=== PATIENT | female | born 1960 | race African-American/Black ===

== ENCOUNTER 2025-01-22 22:26 | Emergency (ER) | payer OTHER, SELFPAY ==
--- NOTE | ~2025-01-22 | CT_ITS ---
CT HEAD NON-CONTRAST Clinical History: face paresthesia Comparison: None Technique: Unenhanced axial images skull base to vertex Coronal, sagittal reformats CT images acquired with automatic exposure control for dose reduction DLP: 681 mGy-cm Findings: Sulci, ventricles: Unremarkable. No intracerebral hemorrhage. No evidence acute territorial infarct. No mass effect, midline shift. Bony calvarium intact. Visualized paranasal sinuses: Clear. Mastoid air cells: Clear. IMPRESSION: 1. No acute intracranial findings. Reviewed, dictated and finalized at location [facility]
--- OUTSIDE RECORDS SUMMARY | 2025-01-22 22:29 | XMS_ITS | Clinical Summary ---
Author Organization [facility] [employer] Address [address] [place] [address] Care Team Providers Care Weatherization Technician Name Role Phone Lopez Cox MD Primary Care Provider Source Comments [facility] [employer],non-owned Affiliates and Associated Physician Practices is amultiple site organization consisting of ambulatory clinics and hospital sitesin [place], [place], [place] and [place]. This disclosure is being madepursuant to the Care Everywhere program and may not contain all information available regarding this patient. Last updated 17.[facility] [employer] Allergies No known active allergies Medications * This document contains information received from the source organization and may not represent a complete record from that organization. * Be aware that medications may not be up to date on this document. Alwaysverify current medications with the patient. aspirin EC (ECOTRIN) 81 MG tablet aspirin 81 mg tablet,delay ed release TAKE 1 TABLET BY MOUTH EVERY DAY Active amLODIPine (Norvasc) 10 MG tablet Take 1 (one) tablet by mouth once daily Active Blood Glucose Monitoring Suppl (ONE TOUCH ULTRA 2) w/Device KIT as directed 10/09/19 22 Active rosuvastatin (Crestor) 10 MG tablet Take 1 (one) tablet by mouth 06/06/19 23 Active glimepiride (Amaryl) 2 MG tablet Take 1 (one) tablet by mouth 2 times daily with morning and evening meal 06/16/19 23 Active losartan - hydroCHLOROthiazide (Hyzaar) 50-12.5 MG tablet losartan 50 mg-hydrochlo rothiazide 12.5 mg tablet TAKE 2 TABLETS BY MOUTH DAILY Active Rybelsus 7 MG tablet Take 1 (one) tablet by mouth once daily 12/10/19 24 Active metFORMIN ER 24hr (Glucophage XR) 500 MG tabletIndications:Type 2 diabetes mellitus without complication, with long-term current use of insulin (HCC) Take 4 (four) tablets by mouth daily with dinner 120 tablet 11 05/10/19 25 Active dexAMETHasone (Decadron) 1 MG tabletIndications:Adren al incidentaloma (HCC) Take 1 (one) tablet by mouth once daily 1 tablet 08/11/19 25 Active Active Problems Problem Noted Date Diagnosed Date Adrenal incidentaloma 08/12/2022 Assessment & Plan (08/12/2022 3:51 PM CDT): 61 yo F with adrenal incidentaloma. No symptoms. Will get testing for excess adrenal hormones: 24-hour urine fractioned metanephrines and cathecolamines 24-h urinary free cortisol Aldosterone/ renin ratio Creatinine. We will follow up in 3 months after labs done Benign essential hypertension 03/26/2021 Diabetes mellitus 03/26/2021 Impaired fasting glucose 03/26/2021 Osteoarthrosis 03/26/2021 Tobacco user 03/26/2021 History of excision of mass 03/26/2021 COVID-19 virus infection 02/03/2021 Hyperplastic polyp of large intestine 01/18/2020 Nicotine dependence 05/27/2018 History of total hysterectomy 01/26/2018 Influenza vaccination declined 01/25/2018 0 08/12/2022 History of hysterectomy 01/25/2018 08/13/19 23 Type 2 diabetes mellitus without complication Overview (11/08/2024): IMO 11/08/2024 Forearm mass, right Social History Tobacco Use Types Packs/Day Years Used Date Smoking Tobacco: Former Cigarettes 0 Q uit: 02/03/2021 Smokeless Tobacco: Never Tobacco Cessation:Counseling Given: Not Answered Comments:pack would last about a week Alcohol Use Standard Drinks/Week Comments Yes 2 (1 standard drink = 0.6 oz pur e alcohol) socially Comments No Sex and Gender Information Value Date Recorded Sex Assigned at Not on file Legal Sex Female 6:28 AM FILM WAXER Gender Identity Not on file Sexual Orientation Not on file Last Filed Vital Signs Vital Sign Reading Time Taken Comments Blood Pressure 121/69 08/03/2024 9:41 AM CDT Pulse 85 08/03/2024 9:41 AM CDT Temperature 36.3 C (97.4 F) 04/21/2023 2:22 PM CDT Respiratory Rate 12 04/21/2023 2:22 PM CDT Oxygen Saturation 100% 08/03/2024 9:41 AM CDT Inhaled Oxygen Concentration - - Weight 68.8 kg (151 lb 9.6 oz) 08/03/2024 9:41 A M CDT Height 165.1 cm (5' 5) 08/03/2024 9:41 AM CDT Body Mass Index 25.23 08/03/2024 9:41 AM CDT Plan of Treatment Upcoming Encounters Date Type Department Care Team (Latest Contact Info) Description 03/02/2025 8:45 AM FILM WAXER Hospital Encounter [facility] [address] [place] [id number] Gabe Johnson MD [address] [place] [phone] Surgery General 03/02/2025 8:45 AM FILM WAXER - 03/02/2025 9:30 AM FILM [facility]ER Surgery [facility] [address] [place] [phone] Gabe Johnson MD [address] [place] [phone] COLONOSCOPY SCREEN w/ Agbim Scheduled Procedures Name Priority Associated Diagnoses Date/Ti me COLONOSCOPY SCREEN Hyperplastic colonic polyp, unspecified part of colon 03/02/2025 8:45 AM FILM WAXER Health Maintenance Due Date Last Done Comments COLOGUARD (AGES 45-75) - COLON CA SCREENING 1961 COLON MONITORING 1961 COLONOSCOPY - COLON CA SCREENING 1961 CT COLONOGRAPHY - COLON CA SCREENING 1961 Colorectal Cancer Screening 1961 FIT - COLON CA SCREENING 1961 FLEX SIG - COLON CA SCREENING 1961 MAMMOGRAM 1961 HIV SCREENING 1976 HEPATITIS C SCREENING 08/15/1979 DTAP/TDAP/TD VACCINES (1 - Tdap) 1980 PNEUMOCOCCAL VACCINE 50+ (1 of 2 - PCV) 1980 ZOSTER VACCINE (1 of 2) 08/20/2011 DIABETES RETINOPATHY SCREENING 03/26/2021 DIABETES-FOOT EXAM WITH MONOFILAMENT 03/26/2021 DEPRESSION SCREENING 02/09/2024 DIABETES - URINE PROTEIN SCREENING 02/09/2024 COVID-19 VACCINE ( season) 2024 04/18/2020, 03/21/2020 INFLUENZA VACCINE (#1) 2024 11/11/2013, 2012 DIABETES-HGB A1C 01/11/2025 07/12/2024, 05/2023, 04/21/2023, Additional history exists DIABETES-SERUM CREATININE 01/11/20252023, 01/12/2024, 01/13/2023, Additional history exists Respiratory Syncytial Virus (RSV) Vaccine Pt: or over 60 yrs (1 - 1-dose 75+ series) 2036 HEPATITIS B VACCINE Aged Out No longe r eligible based on patient's age to complete this topic HIB VACCINE Aged Out No longer eligi ble based on patient's age to complete this topic HPV VACCINE Aged Out No longer eligi ble based on patient's age to complete this topic MENINGOCOCCAL (Group B) VACCINE SHARED DECISION-MAKING Aged Out No longer eligible based on patient's age to complete this topic MENINGOCOCCAL GROUPS A/C/Y/W VACCINE Aged Out No longer eligible based on patient's age to complete this topic Goals Goal Patient Goal Type Associated Problems Recent Progress Patient-Stated? Author Medication Management General No Jocelyn Babb, horologist Procedure Name Priority Date/Time Associated Diagnosis Comments HEMOGLOBIN A1C - POINT OF CARE (AMB) [facility] Routine 07/12/2024 1:35 PM CDT Type 2 diabetes mellitus without complication, with long-term current use of insulin (HCC) BASIC METABOLIC PANEL (CALCIUM TOTAL) Routine 01/12/2024 12:05 PM FILM WAXER Adrenal incidentaloma from Last 3 Months or Most Recently Relevant to Health Maintenance Results * HEMOGLOBIN A1C - POINT OF CARE (AMB) [facility] (07/12/2024 1:35 PM CDT) Pathologist [facility] Hemoglobin A1c POCT 5.8 % [address] BLOOD SPECIMEN / Unknown 07/12/2024 1:35 PM CDT Jad Silvestre MD LAB - POINT OF CARE ORDERABLES Final Result [address] [place] [address], [place] [address], [facility] [phone] * (ABNORMAL) BASIC METABOLIC PANEL (CALCIUM TOTAL) (01/12/2024 12:05 PM FILM WAXER) [facility] BUN 11 7 - 26 mg/dL 01/12/2024 1:16 PM [facility] Creatinine 0.75 0.56 - 0.96 mg/dL 01/12/2024 1:16 PM [facility] Sodium 141 136 - 145 mmol/L 01/12/2024 1:16 PM [facility] Potassium 2.9(L) 3.5 - 4.5 mmol/L 01/12/2024 1:16 PM [facility] Chloride 103 98 - 107 mmol/L 01/12/2024 1:16 PM [facility] CO2 26 22 - 29 mmol/L 01/12/2024 1:16 PM [facility] Glucose 141(H) 70 - 99 mg/dL 01/12/2024 1:16 PM [facility] Calcium 9.7 8.4 - 10.2 mg/dL 01/12/2024 1:16 PM [facility] Anion Gap 12 6 - 16 01/12/2024 1:16 PM [facility] BUN/Creatinine Ratio 15 7 - 23 01/12/2024 1:16 PM [facility] Osmolality Calculated 294 275 - 295 mOsm/kg 01/12/2024 1:16 PM [facility] eGFR by CKD-EPI 90 >=90 mL/min/1.7 3 m2 01/12/2024 1:16 PM [facility] Blood BLOOD SPECIMEN / Unknown Lab Venipuncture / Unknown 01/12/2024 12:05 PM FILM [facility]ER 01/12/2024 12:38 PM FILM [facility]ER Andrés Angeles MD LAB - CHEMISTRY ORDERABLES Fi nal Result [facility] [address] [place] [phone], [facility] [phone] from Last 3 Months or Most Recently Relevant to Health Maintenance Insurance [facility] Care Teams Weatherization Technician Relationship Specialty Start Date End Date Lopez Cox MD [address] [place], [place] [phone] PCP - General 12/09/20
--- OUTSIDE RECORDS SUMMARY | 2025-01-22 22:29 | XMS_ITS | Continuity of Care Document ---
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 Plan of Treatment Reminders Order Date Submit Date Provider Last Modified By Organization Details Last Modified Time Details Appointments ANY 15 2025 11:30A M Lopez Cox MD Not available Not available Not available Lab CBC 2024 026 [facility], [address], [address], [place], [address], 11/08/2024 12:57:54 CMP, serum or plasm a 2024 026 [facility], [address] [facility] [address], [address], [place], [address], 11/08/2024 12:57:53 HbA1c (hemo globi n A1c), blood 2024 026 [facility], [address] [facility] [address], [address], [place], [address], 11/08/2024 12:56:28 lipid panel , serum 2024 026 [facility], [address], [place], [address], 11/08/2024 12:56:28 album in/cr eatin ine, mass ratio , urine 2024 026 kylah [facility], [address], [address], [place], [address], 11/08/2024 12:57:03 Referral gastr mu leonardo ist refer ral 2024 TRACY [facility], [address] [place], [address], 12/12/2024 04:09:55 diabe tic ophkarlos almol ogy refer ral 2024 TRACY [facility], [address] , [place], [address], 01/12/2025 07:25:27 hand surge on refer ral 2024 TRACY Ernandez MD, [address] [facility] , [address], [address], 12/12/2024 04:09:55 Procedures None recor ded. Surgeries None recor ded. Imaging MAMMO , evelia crespo, bilat eral 2024 [facility] ([facility]), [address], [place], [address], 12/07/2024 10:20:40 Medication Orders None recor ded. Patient TargetsNo targets recorded. 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 Thumb. Extensor injury R. 5th digit Referring Physician: Lopez Cox, Internal Medicine, Encounter Date: 11/08/2024 Results Created Date Observation Date Name Description Value Unit Range Abnormal Flag Note LastModifiedBy Organization Detail LastModifiedTime 11/07/1911/07/2024 LIPID PANEL cholesterol, total 115 mg/dL 100-19 9 Not Available [facility] ([facility]) [address] [place], [address], 11/07/2024 08:33:14 11/07/1911/07/2024 LIPID PANEL triglyceride s 100 mg/dL 0-149 Not Available [facility] ([facility]) [address] [place], [address], 11/07/2024 08:33:14 11/07/1911/07/2024 LIPID PANEL HDL cholesterol 43 mg/dL >39 Not Available [facility] ([facility]) [address] [place], [address], 11/07/2024 08:33:14 11/07/1911/07/2024 LIPID PANEL VLDL cholesterol maty 19 mg/dL 5-40 Not Available [facility] ([facility]) [address] [place], [address], 11/07/2024 08:33:14 11/07/1911/07/2024 LIPID PANEL LDL chol calc ([facility]) 53 mg/dL 0-99 Not Available [facility] ([facility]) [address] [place], [address], 11/07/2024 08:33:14 11/07/19 25 11/07/2024 HEMOG LOBIN A1C hemoglobin A1C 6.3 % 4.8-5. 6 above high normal Predi abete s: 5.7 - 6.4 Diabe cameron: >6.4 Glyce anamika contr ol for adult s with diabe cameron: <7.0 Not Available [facility] ([facility]) [address], [place], [address], 11/07/2024 08:33:15 10/12/19 25 10/11/2024 MAMMO , scree cherie, bilat eral No observ ation record ed. [facility] [address] [place], [address], 11/08/2024 12:31:58 Result Notes None recorded. Problems Name Problem SNOMED Code Status Onset Date Resolution Date Notes Provider Name and Address Organization Details Recorded Time Neck sprain 391846266 Active oLpez Cox MD Attn: Accounting ,[address] [facility], [place], [address] , [facility] 4 10:29:27 Low back pain 193915228 Active Lopez Cox MD Attn: Accounting ,[address] [facility], [place], [address] , [facility] 4 10:29:27 Impaired fasting glycemia 970361892 Active Not Available [facility] 3 08:41:14 Osteoarthriti s 988772170 Active Not Available [facility] 3 08:41:14 Benign essential hypertension 9406235 Active Not Available [facility] 3 08:41:14 Tobacco user 439438049 Active Not Available [facility] 3 08:41:14 Blood in urine 10982644 Active Not Available [facility] 3 08:41:14 Neck pain 70088018 Active Not Available [facility] 3 08:41:15 Diabetes mellitus 70451394 Active Lopez Cox MD Attn: Accounting ,[address] [facility], [place], [address] , [facility] 5 12:32:47 Benign hypertension 06850686 Active Not Available [facility] 3 08:41:14 Type 2 diabetes mellitus without complication 593837821 Active 2017 Not Available [facility] 3 08:41:14 History of hysterectomy 821200739 Active 2017 Not Available [facility] 3 08:41:14 Influenza vaccination declined 720596863 Active 2017 Not Available [facility] 3 08:41:14 Nicotine dependence 98619110 Active 2018 Not Available [facility] 3 08:41:14 History of total hysterectomy 376905201 Active 2019 Not Available [facility] 3 08:41:14 Hyperplastic polyp of large intestine 748379824 Active 2019 Not Available [facility] 3 08:41:15 Pneumococcal vaccination declined 120433842 Active 2020 Not Available [facility] 3 08:41:14 Bacterial vaginosis 964130052 Active 2020 Not Available [facility] 3 08:41:14 Vascular calcification , radiographic finding 710166272 Active 2022 Not Available [facility] 3 08:41:14 Lesion of liver 479756355 Active 2024 Lopez Cox MD Attn: Accounting ,[address] [facility], [place], [address] , [facility] [place] 5 12:15:41 Notes:Some problems listed i n Documents: #[id number], #[id number] could not be added to this patient's chart. Please review these documents and add these problems to the patient's chart manually as needed. Problem Notes None recorded. Procedures Surgical History Date Name Laterality Status Provider Name and Address Organization Details Recorded Time 04/05/19 25 Diabetic Foot Exam completed Lopez Cox MD Attn: Accounting,[address] [facility], [place], [address], [place] [facility] 04/05/2024 12:14:55 01/14/20 23 Diabetic Foot Exam completed Lopez Cox MD Attn: Accounting,[address] [facility], [place], [address], [place] [facility] 01/13/2023 18:40:52 03/20/19 21 Date of Last Mammogram completed Nakita Zuniga [place] [facility] 07/04/2020 14:11:27 02/21/19 20 Total hysterectomy completed CARLOS ARORA Attn: Accounting,[address] [facility], [place], [address], [place] [facility] 10/28/2022 11:56:36 05/29/19 15 colonoscopy completed Lopez Cox MD Attn: Accounting,[address] [facility], [place], [address], [place] [facility] 02/21/2019 20:31:38 Imaging Results None recorded. Procedure Notes None recorded. Medical Equipment None Reported. Allergies Allergen ID Allergen Name Allergen Category Reaction Reaction Severity Criticality Documentation Date Start Date Code Code System Note Provider Name and Address Organization Details Recorded Time 17570808 No known allergy (situatio n) Not available Not available Not available Not available 10/06/2023 09126 6003 SNOMED Lopez Cox MD Attn: Lavinia mar,[address] [facility], [place], [address], [place] [facility] 10:29:16 No known drug allergies Medications Name Sig Start Date Stop Date Status Note LastModified by Organization Details LastModified Time Prescript ion - New 01/14 completed Not Available Not Available Not Available celecoxib 200 mg capsule TAKE 1 CAPSULE BY MOUTH EVERY DAY 01/13 completed Not Available Not Available Not Available cyclobenz aprine 10 mg tablet TAKE 1 TABLET BY MOUTH EVERY 8 HOURS NEEDED 01/13 completed Not Available Not Available Not Available methocarb patricia 500 mg tablet TAKE 1-2 TABLETS BY MOUTH EVERY 6-8 HOURS NEEDED 01/13 completed Not Available Not Available Not Available metformin 500 mg tablet TAKE 1 TABLET BY MOUTH TWICE DAILY 07/11 completed Not Available Not Available Not Available azithromy nadia 250 mg tablet 09/24 completed Not Available Not Available Not Available ibuprofen 800 mg tablet TAKE 1 TABLET BY MOUTH EVERY 8 HOURS NEEDED active Not Available Not Available No t Available fluconazo le 150 mg tablet TAKE 1 TABLET BY MOUTH EVERY DAY FOR 1 DAY NEEDED 06/15 completed Not Available Not Available Not Available lovastati n 40 mg tablet TAKE 1 TABLET BY MOUTH EVERY DAY 06/15 completed Not Available Not Available Not Available Tylenol Arthritis Pain 650 mg tablet,ex tended release Take 2 tablets every 8 hours by oral route as directed for 10 days. 07/11 completed Not Available Not Available Not Available metronida zole 500 mg tablet TAKE 1 TABLET BY MOUTH TWICE DAILY FOR 7 DAYS DIRECTED 09/10 completed Not Available Not Available Not Available acetamino phen 300 mg-codein e 30 mg tablet TAKE 1 TABLET BY MOUTH FOUR TIMES DAILY NEEDED FOR PAIN 05/14 completed Not Available Not Available Not Available amlodipin e 5 mg tablet Take 1 tablet every day by oral route for 30 days. active Not Available Not Available No t Available acyclovir 400 mg tablet 09/24 completed Not Available Not Available Not Available sulfameth oxazole 800 mg-trimet hoprim 160 mg tablet TAKE 1 TABLET BY MOUTH TWICE DAILY WITH FOOD 02/05 completed Not Available Not Available Not Available aspirin 81 mg tablet,de layed release TAKE 1 TABLET BY MOUTH ONCE DAILY active Not Available Not Available No t Available glimepiri de 2 mg tablet TAKE 1 TABLET BY MOUTH TWICE DAILY WITH MEALS 2024 active Not Available Not Available Not Avai lable glimepiri de 1 mg tablet TAKE 1 TABLET BY MOUTH EVERY DAY WITH A MEAL. 02/05 completed Not Available Not Available Not Available losartan 100 mg-hydroc hlorothia zide 25 mg tablet one po daily 11/08 completed Not Available Not Available Not Available amoxicill in 875 mg tablet 05/11 completed Not Available Not Available Not Available OneTouch Ultra Test strips USE TO TEST ONCE DAILY active Not Available Not Available No t Available dexametha sone 1 mg tablet TAKE 1 TABLET BY MOUTH DAILY active Not Available Not Available No t Available amlodipin e 10 mg tablet TAKE 1 TABLET BY MOUTH EVERY DAY active Not Available Not Available No t Available metformin 1,000 mg tablet TAKE 1 TABLET BY MOUTH TWICE DAILY DIRECTED 07/06 completed Not Available Not Available Not Available losartan 50 mg-hydroc hlorothia zide 12.5 mg tablet TAKE 2 TABLETS BY MOUTH DAILY active Not Available Not Available No t Available metformin ER 500 mg tablet,ex tended release 24 hr TAKE 4 TABLETS BY MOUTH DAILY WITH DINNER active Not Available Not Available No t Available naproxen 500 mg tablet 08/30 completed Not Available Not Available Not Available amoxicill in 875 mg-potass ium clavulana te 125 mg tablet 09/24 completed Not Available Not Available Not Available metaxalon e 800 mg tablet TAKE 1 TABLET BY MOUTH THREE TIMES DAILY NEEDED 07/29 completed Not Available Not Available Not Available cyclobenz aprine 5 mg tablet TAKE 1 TABLET BY MOUTH THREE TIMES DAILY FOR 14 DAYS NEEDED 01/14 completed Not Available Not Available Not Available moxifloxa nadia 0.5 % eye drops INSTILL 1 DROP INTO LEFT EYE THREE TIMES DAILY FOR 7 DAYS 03/10 completed Not Available Not Available Not Available rosuvasta tin 10 mg tablet TAKE 1 TABLET BY MOUTH EVERY DAY AT BEDTIME active Not Available Not Available No t Available nitrofura ntoin monohydra te/macroc rystals 100 mg capsule 05/04 completed Not Available Not Available Not Available Tylenol 08/06 completed Not Available Not Available Not Available Victoza 2-Martin 0.6 mg/0.1 mL (18 mg/3 mL) subcutane ous pen injector Inject 0.6 mg every day by subcutan eous route as directed for 30 days, for Diabetes . 07/06 completed Unavaila ble Not Available Not Available Not Available potassium chloride ER 20 mEq tablet,ex tended release TAKE 2 TABLETS BY MOUTH EVERY DAY FOR 3 DAYS DIRECTED 05/07 completed Not Available Not Available Not Available Jardiance 25 mg tablet TAKE 1 TABLET BY MOUTH EVERY DAY DIRECTED active D/C on 3, Vag. candidia sis Not Available Not Available Not Available Trulicity 0.75 mg/0.5 mL subcutane ous pen injector Inject 0.75 mg every week by subcutan eous route as directed for 28 days. 05/25 completed Not Available Not Available Not Available TRUEplus Pen Needle 31 gauge x 3/16 USE DIRECTED TO inject victoza active Not Available Not Available No t Available Ozempic 0.25 mg or 0.5 mg (2 mg/1.5 mL) subcutane ous pen injector INJECT 0.25MG UNDER THE SKIN ONCE WEEKLY 06/17 completed Complete your current supply of weekly Ozempic, then start Victoza in 1 week Not Available Not Available Not Available OneTouch Ultra2 Meter USE DIRECTED active Not Available Not Available No t Available Rybelsus 7 mg tablet TAKE ONE TABLET BY MOUTH DAILY AT LEAST 30 MINUTES BEFORE FIRST FOOD, BEVERAGE OR OTHER ORAL MEDICINE OF THE DAY active Not Available Not Available No t Available Rybelsus 3 mg tablet take once daily 08/10 completed Increase d to 7 mg Not Available Not Available Not Available Ozempic 1 mg/dose (4 mg/3 mL) subcutane ous pen injector Inject 0.25 mg every week by subcutan eous route around the clock for 28 days. 2022 active Not Available Not Available Not Avai lable Ozempic 0.25 mg or 0.5 mg (2 mg/3 mL) subcutane ous pen injector Inject by subcutan eous route for 28 days. 06/17 completed Complete your current supply of weekly Ozempic, then start Victoza in 1 week Not Available Not Available Not Available Vitals Date Recorded Body height Body mass index (BMI) Body weight Heart rate Oxygen saturation Respiratory rate Systolic And Diastolic Provider Name and Address Organization Details Last Updated DateTime 5 165.1 cm 25.5 kg/m2 52820.4 3 g 66 /min 99 % 14 /min 104/70 mm[Hg] Mary Aguilera MA ID - [facility] 5 12:10:58 Social History Question Answer Notes LastModified by Organizat ion Details LastModified Time Tobacco Smoking Status Current Some Day Smoker Only smokes during the weekend when she drinks Lopez Cox MD Attn: Accounting,[address] [place], [address], [place] [facility] 11/08/2024 12:50:04 How Many Years Have You Consumed Alcohol? 30 Information not available 06/12/2020 Are You Blind Or Do You Have Difficulty Seeing? No Information not available 05/14/2020 What Is Your Level Of Caffeine Consumption? Occasional Information not available 06/12/2020 Have You Been To An Area Known To Be High Risk For COVID-19? Yes Information not available 05/14/2020 Are You Deaf Or Do You Have Serious Difficulty Hearing? No Information not available 05/14/2020 What Type Of Diet Are You Following? REGULAR Information not available 05/27/2018 Are There Any Guns Present In Your Home? No Information not available 05/14/2020 Hard Of Hearing Or Deaf In One Or Both Ears? No Information not available 05/27/2018 Legally Blind In One Or Both Eyes? No Information not available 05/27/2018 What Was The Date Of Your Most Recent Tobacco Screening? 11/08/2024 Information not available 11/08/2024 What Is Your Current Pack Years? 10packyears Information not available 05/14/2020 Do You Use Your Seat Belt Or Car Seat Routinely? Yes Information not available 05/14/2020 Do You Have Smoke And Carbon Monoxide Detectors In Your Home? Yes Information not available 05/14/2020 At What Age Did You Start Smoking Tobacco? 31 Information not available 05/14/2020 How Much Tobacco Do You Smoke? 0.25 PPD Information not available 01/09/2014 Do You Use Sunscreen Routinely? No Information not available 05/14/2020 Has Tobacco Cessation Counseling Been Provided? Yes Information not available 05/27/2018 On What Date Was Tobacco Cessation Counseling Provided? 11/08/2024 Information not available 11/08/2024 How Many Years Have You Smoked Tobacco? 6 Information not available 01/09/2014 Sex: Unknown Functional Status Question Answer Note LastModified by Organizat ion Details LastModified Time Do you use any illicit or recreational drugs? No Information not available 05/14/2020 Do you or have you ever used any other forms of tobacco or nicotine? No Information not available 05/14/2020 What is your level of alcohol consumption? Occasional Information not available 01/09/2014 Do you or have you ever used smokeless tobacco? Never used smokeless tobacco Information not available 11/08/2018 Are you currently employed? Yes Information not available 05/14/2020 Are you able to care for yourself independently? Yes Information not available 05/27/2018 Do you or have you ever used e-cigarettes or vape? Never used electronic cigarettes Information not available 11/08/2018 What is your exercise level? Occasional Information not available 05/14/2020 Mental Status None recorded. Family History Relationship Description Onset Age of this Age Resolved Age Notes LastModified by Organization Details LastModified Time Mother Harmful pattern of use of alcohol oajao Not available 2015 11:25:52 Mother Malignant neoplasm of breast 68 oajao Not available 2015 11:25:52 Father Harmful pattern of use of alcohol oajao Not available 2015 11:25:52 Father Hypertensive disorder oajao Not available 2015 11:25:52 Sister Hypertensive disorder oajao Not available 2015 11:25:52 Sister Disorder of thyroid gland oajao Not available 2015 11:25:52 Brother Disorder of thyroid gland oajao Not available 2015 11:25:52 Brother Hypertensive disorder 2 brothe rs oajao Not available 06/17/2015 11:25:52 Notes:Her mother is Medical History Condition Response Diabetes Y High Blood Pressure Y Gynecological History Statement/Question Response Age at Menarche 17 Current Control Method Hysterectom y Date of Last Mammogram 03/20/2020 Age at First Child 23 Obstetrics History GPAL:G 2 P 1 0 1 1 Type Value Full Term 1 Spontaneous 1 Living 1 Total 2 Immunizations Vaccine Type Date Status Note Provider Nam e and Address Organization Details Recorded Time COVID-19, mRNA, LNP-S, PF, 100 mcg/0.5mL dose or 50 mcg/0.25mL dose completed Not Available [facility] 08/27/2022 08:41:16 COVID-19, mRNA, LNP-S, PF, 100 mcg/0.5mL dose or 50 mcg/0.25mL dose 1 completed Not Available [facility] 08/27/2022 08:41:16 SARS-COV-2 (COVID-19) vaccine, UNSPECIFIED 1 completed Not Available [facility] 08/27/2022 08:41:16 Influenza, split virus, trivalent, preservative 4 completed Not Available [facility] 08/27/2022 08:41:16 SARS-COV-2 (COVID-19) vaccine, UNSPECIFIED 1 completed Not Available [facility] 08/27/2022 08:41:16 Influenza, split virus, trivalent, preservative 3 completed Not Available [facility] 08/27/2022 08:41:16 Tdap 5 completed Not Available [facility] 02/25/2019 02:44:46 Past Encounters Encounter ID Performer Location Encounter Start Date Encounter Closed Date Diagnosis/Indication Diagnosis SNOMED-CT Code Diagnosis ICD10 Code Diagnosis IMO Codes Diagnosis Note [id number] Lopez Cox MD [facility] (Adult Med) [address] [place] [address] 11/08/2024 11:31:16 11/13/2024 14:53:07 Diabetes mellitus 08000401 E11.9 Stable on Glimepirid e 2 mg, Metformin ER 2000 mg po daily and Rybelsus 7 mg po dailyLabs 6.4% on 03/31/2024 Screening for malignant neoplasm of breast 916432500 Z12.31 Overweight in adulthood with body mass index of 25 or more but less than 30 332546409 E66.3 Z68.25 1919734018 History of polyp of colon 000371664 Z86.0102 7869406223 Deformity of hand 485594 004 M20.009 79653 Overweight 891242721 E66 .3 Therapeuti c drug monitoring assay 42490262 Z51.81 684635 Influenza vaccination declined 820015038 Z28.21 47760194 Health Concerns Section Related Observation LastModified by Organization Detai ls LastModified Time None Recorded Concern Status LastModified by Organization Details LastModified Time None Recorded Payers Encounter Date Sequence Insurance Name Policy Number Policy Watson Covered Member ID Watson Member ID Guarantor Name 11/08/2024 1 [facility] [id number] Rochelle Saldaña [id number] Rochelle Saldaña Notes Date Note Type Note Provider Name and Address Organization Details Recorded Time 11/08/2024 text/html Hypertension F/UReported by PatientHPIFor associated symptoms, patient reportsno dizziness,no lightheadedness,no chest pain,no shortness of breath,no palpitations,no edema, andno calf pain with exertion. For lifestyle, patient reportsregular exerciseandlimiting/ avoiding salt. For medications, patient reportstaking medications as directedandno side effects from medication. Diabetes F/UReported by PatientHPIFor labs, patient reportslast a1c result: 6.3%. For context, patient reportsnormal range of home blood sugars (in the low 100s),seeing eye doctor regularly,checking feet regularly,taking aspirin daily,not missing doses of medications, andno side effects from medications. For associated symptoms, patient reportsno weight gain,no weight loss,no dizziness,no sweats,no headaches,no confusion,no increased thirst,no increased appetite,no increased urination,no blurred vision,no numbness of feet, andno calluses on feet. Hand/FingersReported by PatientHPIFor associated symptoms, patient reportscatching/lock ing. For hand dominance, patient reportsright. For location, patient reportsleft. For quality, patient reportsworsening. For severity, patient reportsno pain. For duration, patient reports4 months. For context, patient reportscannot identify. For alleviating factors, patient reportsnothing helps. For aggravating factors, patient reportscannot identify. For previous surgery, patient reportsnone. For prior imaging, patient reportsnone. For previous injections, patient reportsnone. For previous pt, patient reportsnone. For work related, patient reportsno. For working, patient reportsregular duty.ROS as noted in the HPI Just my annualWhen this finger locksThey said it wasn't broke Ms Saldaña describes a Trigger finger (L. Thumb) and deformity of the right 5th DIP joint after trauma Lopez Cox MD Attn: Accounting,[address] [facility], [place], [address], [place] [facility] 11/08/2024 21:45:09 OBGyn Episode No OBEpisode recorded.
--- OUTSIDE RECORDS SUMMARY | 2025-01-22 22:29 | XMS_ITS | Patient Health Record ---
Author Organization [facility] Address [address] [place] [address] Phone [phone] Care Team Providers Care Radiology Practitioner Assistant Name Role Phone Jacob Townsend Primary Care Provider Reason For Referral No Information Immunizations Status Vaccine Route Administration Date Visit Date Comments Administered COVID-19 Moderna 2nd IM Intramuscular 04/18/2020 EUA given. Patient tolerated well. COVID-19 Moderna 1ST IM Intramuscular 03/21/2020 EUA date 01/2020. Screening reviewed and consent signed. Patient tolerated well. Social History Sex Observation Social History Observation Description Sex Observation Female Plan Of Treatment No Information
[2025-01-22 23:07] VITALS: BP 128/60; PULSE 78; RESP 16; TEMP 36.6; O2SAT 100
[2025-01-23 00:44] VITALS: BP 99/60; PULSE 65; RESP 18; O2SAT 97
--- NOTE | 2025-01-23 01:24 | ED_ITS ---
HPI - General Adult General Chief complaint: Unspecified Stated complaint: facial tingling Time Seen by Provider: 01/23/25 00:29 History of Present Illness HPI narrative: 64-year-old female with history of hypertension hyperlipidemia and diabetes presenting to the emergency department today with some facial tingling that started in the left lower jaw corner of the mouth and started radiating into her right lower jaw. Symptoms started around 530 this evening. She was driving home not doing anything particular which she started noticing paresthesias and sleepy like sensations in the lower part of her left jaw that wrapped around her mouth and started going into her right lower jaw but more predominant in her left side. Did cross midline, does not involve the tongue or posterior oropharynx or neck. Does not involve the teeth or top lip. No cheek or facial involvement in the forehead/periorbital region. no pain and she just describes paresthesias. No numbness or tingling in the fingers or toes. No weakness in the arms legs. No dysarthria or difficulty speaking. No difficulty swallowing or phonating. No headache or vision changes. No nausea or vomiting. No previous history of any neurological issues, trigeminal neuralgia, strokes, traumatic injuries or any recent dental work. No swelling in the face or jaw. She has not tried anything for symptoms at home. Related Data Allergies Allergy/AdvReac Type Severity Reaction Status Date / Time No Known Allergies Allergy Mild Verified 01/22/25 22:27 Review of Systems 2 Review of Systems: As reviewed above in HPI All systems reviewed & are unremarkable except as noted in HPI and below Exam 2 Narrative: GENERAL: [Well-appearing, well-nourished, and in no acute distress.] HEAD: [Normocephalic, atraumatic.] EYES: [PERRLA and EOMI.] ENT: Nares clear, no rhinorrhea or epistaxis. Mucous membranes moist. Subjective paresthesias in the localized V3 distribution of the left lower jaw and right lower jaw but more predominant the left side. No weakness or facial asymmetry. No spasming or trismus. no intraoral lesions acutely she is wearing dentures. Previous dental caps noted but no active signs of dental disease or any abscess formation. No swelling. No lymphadenopathy. NECK: Supple. CHEST: [Clear to auscultation. No respiratory distress.] HEART: [Regular rate and rhythm]. No murmur heard. [Normal peripheral pulses.] ABDOMEN: [Soft, nondistended], [nontender], [No rigidity or guarding] EXTREMITIES: Normal range of motion. [No edema.] SKIN: Warm, dry, no rash. NEURO: No focal motor deficits. Sensation changes in the face as noted above otherwise extremities without any sensory changes. No ataxia, dysphonia, dysarthria, or dysphagia.. Alert and oriented [x3.] PSYCH: [Normal mood and affect.] Course Vital Signs Vital signs: Vital Signs Temperature 36.6 C 01/22/25 23:07 Pulse Rate 78 01/22/25 23:07 Respiratory Rate 16 01/22/25 23:07 Blood Pressure 128/60 01/22/25 23:07 Pulse Oximetry 100 01/22/25 23:07 Temperature 36.6 C 01/22/25 23:07 Pulse Rate 67 01/23/25 04:21 Respiratory Rate 18 01/23/25 04:21 Blood Pressure 118/77 01/23/25 04:21 Pulse Oximetry 94 01/23/25 04:21 MDM MDM Narrative Medical decision making narrative: 64-year-old female with history of hypertension hyperlipidemia and diabetes presenting to the emergency department today with some facial tingling that started in the left lower jaw corner of the mouth and started radiating into her right lower jaw. Symptoms started around 530 this evening. She was driving home not doing anything particular which she started noticing paresthesias and sleepy like sensations in the lower part of her left jaw that wrapped around her mouth and started going into her right lower jaw but more predominant in her left side. Did cross midline, does not involve the tongue or posterior oropharynx or neck. Does not involve the teeth or top lip. No cheek or facial involvement in the forehead/periorbital region. no pain and she just describes paresthesias. No numbness or tingling in the fingers or toes. No weakness in the arms legs. No dysarthria or difficulty speaking. No difficulty swallowing or phonating. No headache or vision changes. No nausea or vomiting. No previous history of any neurological issues, trigeminal neuralgia, strokes, traumatic injuries or any recent dental work. No swelling in the face or jaw. She has not tried anything for symptoms at home. Subjective paresthesias in the localized V3 distribution of the left lower jaw and right lower jaw but more predominant the left side. No weakness or facial asymmetry. No spasming or trismus. no intraoral lesions acutely she is wearing dentures. Previous dental caps noted but no active signs of dental disease or any abscess formation. No swelling. No lymphadenopathy. Hemodynamically stable without any fever, hypoxia, tachycardia. She is pleasant and without any complaints aside from the paresthesias sensations. Classical distribution for something like trigeminal neuralgia or neuropathy, or shingles, but it it does cross midline and seems to involve both V3 distributions of the face. Is more localized to left side so could just be referred symptoms on the right side as well. Low suspicion central pathology such as stroke and she is outside window for thrombolytics therapy. possibility of some electrolyte disturbances or low magnesium. Low suspicion thyroid abnormality. Broad workup obtained, laboratory studies, thyroid studies, CT of the head obtained. She was given anti-inflammatories with gabapentin and Naprosyn to see if that helps. CT unremarkable. Laboratory studies largely unremarkable. Normal TSH. Symptoms improved. Safe for discharge and given neurology follow-up instructions and return precautions. Differential Diagnosis Differential Diagnosis: Classical distribution for something like trigeminal neuralgia or neuropathy, or shingles, but it it does cross midline and seems to involve both V3 distributions of the face. Is more localized to left side so could just be referred symptoms on the right side as well. Low suspicion central pathology such as stroke and she is outside window for thrombolytics therapy. possibility of some electrolyte disturbances or low magnesium. Low suspicion thyroid abnormality. Lab Data MDM Lab Attestation statement: I personally reviewed the patient's lab results. 01/23/25 01:58 01/23/25 01:58 Labs: Lab Results 01/23/25 01/23/25 Range/Units 01:58 01:58 WBC 8.2 (4.5-10.0) K/mm3 RBC 4.38 (4.2-5.4) M/mm3 Hgb 12.9 (12.0-15.0) g/dL Hct 37.7 (37.0-47.0) % MCV 86.1 (80-100) fl MCH 29.5 (26-34) pg MCHC 34.2 (32-36) g/dl RDW 13.5 (11.5-14.5) % Plt Count 282 (150-375) k/mm3 MPV 9.0 (7.4-10.4) fl Immature Gran % (Auto) 0.2 (0-0.5) % Neut % (Auto) 51.1 (45.5-73.1) % Lymph % (Auto) 37.9 (18.3-44.2) % Mower % (Auto) 8.6 H (2.6-8.5) % Eos % (Auto) 1.6 (0-4.4) % Baso % (Auto) 0.6 (0.2-1.2) % Lymph # (Auto) 3.10 (0.9-3.2) K/mm3 Mower # (Auto) 0.7 H (0.1-0.6) K/mm3 Eos # (Auto) 0.1 (0-0.3) K/mm3 Baso # (Auto) 0.1 (0.0-0.1) K/mm3 Abs Immat Gran (auto) 0.02 (0.00-0.031) K/mm3 Absolute Neuts (auto) 4.2 (1.3-6.7) K/mm3 Absolute Nucleated RBC 0.000 (0.0-0.012) K/mm3 Nucleated RBC % 0.0 (0.0-0.2) % Sodium 139 (137-145) mmol/L Potassium 3.4 (3.4-5.0) mmol/L Chloride 108 H (98-107) mmol/L Carbon Dioxide 27 (22-30) mmol/L Anion Gap 4 (4-12) mmol/L BUN 15 (7-17) mg/dL Creatinine 0.83 (0.7-1.0) mg/dL Estim Creat Clear Calc Not Reportable Estimated GFR > 60 (59 - ) Glucose 94 (65-110) mg/dL Calcium 9.3 (8.4-10.2) mg/dL Magnesium 2.4 H Cancelled (1.6-2.3) mg/dL TSH (Reflex) 1.870 (0.465-4.68) uIU/mL Imaging Data Attestation: I personally reviewed and interpreted this imaging study as follows: My impression: No hemorrhage hydrocephalus mass effect or herniation. Unremarkable CT head. Discharge Plan Discharge Clinical Impression: Facial paresthesia Patient Disposition: Home Condition: Stable Instructions: Antibiotic Form, Paresthesia (ED) Additional Instructions: your CT scan shows no intracranial abnormalities at this time. No hemorrhage or active acute large stroke, laboratory studies are reassuring. No signs of thyroid abnormality or electrolyte abnormalities. Suspect irritation to the nerves in your face in the lower jaw causing the symptoms. We will prescribe some anti-inflammatories to help until you can see a neurologist. Return with any emergent concerns or signs of concerns such as difficulty speaking, slurring her speech, losing complete sensation in your face or having drooping face or weakness or sensory deficits in your arms or legs or any difficulties ambulating or coordinating yourself. Patient Language: Korean Prescriptions: New naproxen 500 mg tablet 500 mg PO BID PRN (Reason: pain) Qty: 30 0RF Follow-up/Referrals: Mansoor,Sylvia Marroquin. [Primary Care Provider] Jose Greenfield MD [Physician, Neurology] - 1 Week Referral Note: Bilateral facial paresthesias in the V3 distribution Time of Disposition: 04:10
[2025-01-23] MEDS: NAPROXEN 500 MG TABLET PO (01:53)
[2025-01-23] MEDS: GABAPENTIN 300 MG CAPSULE PO (01:54)
[2025-01-23 02:04] LABS: Hematocrit 37.7 % (37.0-47.0); Hemoglobin 12.9 g/dL (12.0-15.0); Immature Granulocyte Percent A 0.2 % (0-0.5); Lymphocytes Absolute Auto 3.10 K/mm3 (0.9-3.2); Mean Corpuscular HGB Conc 34.2 g/dl (32-36); Mean Corpuscular Hemoglobin 29.5 pg (26-34); Mean Corpuscular Volume 86.1 fl (80-100); Nucleated Red Blood Cells Absolute Auto 0.000 K/mm3 (0.0-0.012); Nucleated Red Blood Cells Perc 0.0 % (0.0-0.2); Platelet Count Result 282 k/mm3 (150-375); Red Blood Count 4.38 M/mm3 (4.2-5.4); White Blood Count 8.2 K/mm3 (4.5-10.0)
[2025-01-23 02:17] LABS: Anion Gap 4 mmol/L (4-12); Blood Urea Nitrogen 15 mg/dL (7-17); Calcium 9.3 mg/dL (8.4-10.2); Carbon Dioxide 27 mmol/L (22-30); Chloride 108 mmol/L (98-107); Estimated Glomerular Filt Rate > 60; Glucose 94 mg/dL (65-110); Magnesium 2.4 mg/dL (1.6-2.3); Potassium 3.4 mmol/L (3.4-5.0); Sodium 139 mmol/L (137-145)
[2025-01-23 02:47] LABS: Thyroid Stimulating Hormone Reflex 1.870 uIU/mL (0.465-4.68)
[2025-01-23 03:14] VITALS: BP 116/81; PULSE 66; RESP 18; O2SAT 94
[2025-01-23 04:21] VITALS: BP 118/77; PULSE 67; RESP 18; O2SAT 94
== END 2025-01-23 04:21 | disposition home or self-care (01) ==
PROVIDERS: Emergency Provider Student in an Organized Health Care Education/Training Program; PCP Internal Medicine Infectious Disease
DX: R20.2 Paresthesia of skin (principal)
CPT/HCPCS: 36415; 70450; 80048; 83735; 84443; 85025; 99284; A9270